=== PATIENT | male | born 1990 ===

== ENCOUNTER 2018-07-02 20:19 | Emergency (ER) | payer OTHER, BC ==
[2018-07-02 20:24] VITALS: BP 132/68; PULSE 70; RESP 18; TEMP 98.3; O2SAT 100
[2018-07-02 20:25] VITALS: BMI 25.1
--- NOTE | 2018-07-02 20:37 | ED PDOC ---
HPI: General Adult Time Seen by Provider: 07/02/18 20:28 Chief Complaint (Nursing): Body Fluid Exposure Chief Complaint (Provider): Body Fluid Exposure History Per: Patient History/Exam Limitations: no limitations Onset/Duration Of Symptoms: Mins (just prior to arrival) Additional Complaint(s): 27 year old male presents to the ED for evaluation of exposure to body fluid. 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 He notes the man accidentally got his blood and vomit on his face while moving, close to his eye, but it did not enter his eye. Patient reports he quickly cleaned off his face. Denies having any break in skin integrity, puncture wounds, bites, trauma, or physical complaints. PMD: Darian Slater Past Medical History Reviewed: Historical Data, Nursing Documentation, Vital Signs Vital Signs: Last Vital Signs Temp 98.3 F 07/02/18 20:23 Pulse 70 07/02/18 20:23 Resp 18 07/02/18 20:23 BP 132/68 07/02/18 20:23 Pulse Ox 100 07/02/18 20:23 - Medical History PMH: No Chronic Diseases - Surgical History Surgical History: No Surg Hx - Family History Family History: States: Unknown Family Hx - Home Medications Home Medications: Ambulatory Orders Medication Instructions Recorded Hydrocortisone 1% Cream [Cortizone 1 appl TP BID #30 tube 04/22/14 1% Cream] - Allergies Allergies/Adverse Reactions: Allergies Allergy/AdvReac Type Severity Reaction Status Date / Time No Known Allergies Allergy Verified 07/02/18 20:26 Review of Systems ROS Statement: Except As Marked, All Systems Reviewed And Found Negative Constitutional: Positive for: Other (exposure to blood / vomit) Skin: Negative for: Other (break in skin integrity, puncture wounds, bites) Physical Exam - Reviewed Nursing Documentation Reviewed: Yes Vital Signs Reviewed: Yes - Physical Exam Appears: Positive for: No Acute Distress Head Exam: Positive for: ATRAUMATIC, NORMOCEPHALIC Skin: Positive for: Normal Color (there is no visible lesion, puncture, laceration, scrape or other break in normal skin integrity), Warm, Dry. Negative for: Diaphoresis, Rash Eye Exam: Positive for: Normal appearance, PERRL. Negative for: Nystagmus, Periorbital swelling, Periorbital tenderness Neck: Positive for: Supple Cardiovascular/Chest: Positive for: Regular Rate, Rhythm Respiratory: Positive for: Normal Breath Sounds. Negative for: Respiratory Distress Pulses-Carotid (L): 2+ Pulses-Carotid (R): 2+ Pulses-Radial (L): 2+ Pulses-Radial (R): 2+ Neurological/Psych: Positive for: Awake, Alert, Oriented (x3) - Laboratory Results Result Diagrams: 07/02/18 20:50 07/02/18 20:50 - ECG O2 Sat by Pulse Oximetry: 100 (RA) Pulse Ox Interpretation: Normal Medical Decision Making Medical Decision Making: Time: 2032 Initial Impression: exposure to body fluid Initial Plan: --Amylase chem --CMP --Hepatitis B --Hepatitis panel (acute) --CBC with differential --HIV rapid --RPR --Urinalysis Patient offered prophylaxis HIV medication, but he denied and instead states he would like to wait in ED until test results come back. Scribe Attestation: Documented by Grisel Zimmerman, acting as a scribe for Jah Hernanedz PA-C. Provider Scribe Attestation: All medical record entries made by the Scribe were at my direction and personally dictated by me. I have reviewed the chart and agree that the record accurately reflects my personal performance of the history, physical exam, medical decision making, and the department course for this patient. I have also personally directed, reviewed, and agree with the discharge instructions and disposition. Disposition - Clinical Impression Clinical Impression: Hx of exposure to hazardous bodily fluids - Disposition Disposition Time: 22:09 Condition: STABLE Additional Instructions: Follow up with your PMD for follow on care and treatment, including additional h epititis testing if required Instructions: Blood or Body Fluid Exposure Forms: [employer] ([place])
[2018-07-02 21:12] LABS: BASO % 0.5 % (0.0-2.0); EOS # 0.2 K/uL (0.0-0.7); EOS % 2.1 % (0.0-4.0); HEMOGLOBIN 15.8 g/dL (12.0-18.0); LYMPH # 2.1 K/uL (1.0-4.3); LYMPH % 25.8 % (20.0-40.0); MEAN CELL VOLUME 83.8 fl (80.0-94.0); MEAN CORPUSCULAR HEMOGLOBIN 28.6 pg (27.0-31.0); MEAN CORPUSCULAR HGB CONC 34.2 g/dL (33.0-37.0); MEAN PLATELET VOLUME 9.9 fl (7.2-11.7); MONO # 0.7 K/uL (0.0-0.8); MONO % 8.9 % (0.0-10.0); NEUT % 62.7 % (50.0-75.0); RBC 5.5 Mil/uL (4.40-5.90); RED CELL DISTRIBUTION WIDTH 13.5 % (11.5-14.5); URINE BILIRUBIN NEGATIVE (NEGATIVE); URINE BLOOD NEGATIVE (NEGATIVE); URINE CLARITY CLEAR (Clear); URINE COLOR YELLOW (YELLOW); URINE GLUCOSE (UA) NEG (NEGATIVE); URINE LEUKOCYTE ESTERASE NEG Leu/uL (Negative); URINE PROTEIN NEGATIVE (NEGATIVE); URINE UROBILINOGEN 0.2-1.0 mg/dL (0.2-1.0)
[2018-07-02 21:21] LABS: ALB/GLOB RATIO 1.3 (1.0-2.1); ALBUMIN 4.8 g/dL (3.5-5.0); ALT/SGPT 50 U/L (21-72); AMYLASE 94 U/L (30-110); AST/SGOT 47 U/L (17-59); BLOOD UREA NITROGEN 16 mg/dl (9-20); CALCIUM 9.9 mg/dL (8.4-10.2); GFR NON-AFRICAN AMERICAN > 60
[2018-07-03 12:03] LABS: HEPATITIS B SURFACE AG Negative (NEGATIVE)
[2018-07-03 12:09] LABS: HEPATITIS A IGM NEGATIVE (NEGATIVE); HEPATITIS B CORE AB NEGATIVE (NEGATIVE)
[2018-07-03 12:21] LABS: HEPATITIS C ANTIBODY NEGATIVE (NEGATIVE)
== END 2018-07-02 22:09 | disposition home or self-care (01) ==
LOC: H.ER 20:19
DX: Z77.21 Contact with and (suspected) exposure to potentially hazardous body fluids (principal); Y99.0 Civilian activity done for income or pay